=== PATIENT | female | born 1960 | race Caucasian/White ===

== ENCOUNTER 2021-12-25 11:11 | Day surgery (SDC) | payer MEDICAID ==
[~2021-12-25] VITALS: Ht 162.6 cm; Wt 70.9 kg
[2021-12-25 11:25] VITALS: BP 133/77
[2021-12-25] MEDS ORDERED: ACET-2119 PO (11:34)
[2021-12-25] MEDS ORDERED: normal saline 1000ml 1,000 ML IV PRN (11:35)
[2021-12-25 12:14] LABS: BASOPHILS % (AUTO) 0.6 % (0-1); EOSINOPHILS # (AUTO) 0.1 X10'3 (0-0.9); EOSINOPHILS % (AUTO) 5.8 % (0-6); HEMATOCRIT 40.4 % (35.0-45.0); HEMOGLOBIN 13.6 g/dl (12.0-16.0); LYMPHOCYTES # (AUTO) 0.7 X10'3 (1.1-4.8); LYMPHOCYTES % (AUTO) 45.1 % (21-51); MEAN CORPUSCULAR HEMOGLOBIN 31.2 PG (27.0-31.0); MEAN CORPUSCULAR HGB CONC 33.7 g/dL (33.0-36.5); MEAN CORPUSCULAR VOLUME 92.5 FL (78-98); MEAN PLATELET VOLUME 7.3 FL (7.4-10.4); MONOCYTES # (AUTO) 0.2 X10'3 (0-0.9); NEUTROPHILS # (AUTO) 0.6 X10'3 (1.8-7.7); NEUTROPHILS % (AUTO) 37.5 % (42-75); PLATELET COUNT 125 X10'3 (140-440); RED BLOOD COUNT 4.37 X10'6 (4.20-5.60); RED CELL DISTRIBUTION WIDTH 13.6 % (11.5-14.5); WHITE BLOOD COUNT 1.6 X10'3 (4.5-11.0)
[2021-12-25] MEDS ORDERED: fentaNYL/PF 50MCG/1 ML 2ML syringe ONE (12:30)
[2021-12-25] MEDS ORDERED: LIDOcaine 1% W/epiNEPHrine 1:100,000 20ml vial SQ ONE (12:30)
[2021-12-25] MEDS ORDERED: midazolam 1 mg/ML 2ml injection ONE ×2 (12:30→13:11)
[2021-12-25] MEDS ORDERED: heparin sodium, porcine/PF 100unit/ml 5ML syringe ONE (12:30)
[2021-12-25 12:37] LABS: PLATELET ESTIMATE DECREASED; TOTAL CELLS COUNTED 100
[2021-12-25 13:36] VITALS: BP 109/63
[2021-12-25 13:51] VITALS: BP 113/62
[2021-12-25 14:01] VITALS: BP 102/65
[2021-12-25 14:16] VITALS: BP 105/63
== END 2021-12-25 14:25 | disposition home or self-care (01) ==
LOC: SSTAY O 11:11
PROVIDERS: ATTEND Preventive Medicine Aerospace Medicine
DX: C34.92 Malignant neoplasm of unspecified part of left bronchus or lung (principal)
CPT/HCPCS: 36561; 76937; 77001; 85025; 99152; 99153; C1769; C1788; C1894; J1642; J2250; J3010; 85007